=== PATIENT | female | born 2000 | race Asian ===

== ENCOUNTER 2025-02-13 12:15 | Emergency (ER) | payer MEDICAID ==
[~2025-02-13] VITALS: Ht 170.2 cm; Wt 68.0 kg
[2025-02-13 12:24] VITALS: TEMP 98.2
[2025-02-13] MEDS ORDERED: KETOROLAC TROMETHAMINE 15 MG/ML VIAL ONE (13:06)
[2025-02-13] MEDS ORDERED: METH4TAB17 PO (13:08)
[2025-02-13] MEDS ORDERED: LIDO30AD10 TP (13:08)
[2025-02-13] MEDS ORDERED: IBUP-1955 PO (13:08)
[2025-02-13] MEDS ORDERED: HYDR-4303 PO ×2 (13:08→17:45)
[2025-02-13] MEDS ORDERED: CYCL5TAB PO (13:08)
[2025-02-13] MEDS: KETOROLAC TROMETHAMINE 15 MG/ML VIAL IM ONE (13:14)
[2025-02-13] MEDS: LIDOCAINE 5% (PATCH) 1 EA PATCH TP STA (13:15)
[2025-02-13 13:26] VITALS: BP 110/70; O2SAT 97
== END 2025-02-13 13:23 | disposition home or self-care (01) ==
LOC: ER 12:20
DX: M54.42 Lumbago with sciatica, left side (principal); Z60.2 Problems related to living alone
CPT/HCPCS: 99283; 96372; J1885